=== PATIENT | female | born 1960 | race Caucasian/White ===

== ENCOUNTER 2019-03-01 09:48 | Day surgery (SDC) | payer OTHER ==
[~2019-03-01] VITALS: Ht 157.5 cm; Wt 95.8 kg
[2019-03-01 10:24] VITALS: Ht 157.5 cm; Wt 95.8 kg
[2019-03-01] MEDS ORDERED: BENAZEPRIL DAILY (10:29)
[2019-03-01] MEDS ORDERED: ASPI-903 PO (10:29)
[2019-03-01 10:41] VITALS: BP 123/73; PULSE 66; RESP 14
[2019-03-01] MEDS ORDERED: LIDOCAINE 2% (SDV) 5 ML INJ ONE (10:44)
[2019-03-01] MEDS ORDERED: PROPOFOL 60 ML ONE (10:44)
--- NOTE | 2019-03-01 11:21 | PREAC ---
Date/Time of Note Date/Time of Note DATE: 03/01/19 TIME: :19 Anesthesia Eval and Record Evaluation Time Pre-Procedure Interview DATE: 03/01/19 TIME: 11:19 Age 58 Sex female NPO: 8 hrs Preoperative diagnosis abd pain; screening Planned procedure egd/colonoscopy Past Medical History Past Medical History: Includes Cardio: HTN GI: GERD, Obesity Surgery & Anesthesia Issues No known issue Meds Anticoagulation: No Beta Jesus within 24 hr: No Reason Beta Jesus not given: Pt. not on B-Jesus Reported Medications Aspirin* (Aspirin* Chew) 81 Mg Tab.chew, 81 MG PO DAILY, TAB.CHEW 03/01/19 [Benazepril Daily] No Conflict Check 03/01/19 Meds reviewed: Yes Allergies Coded Allergies: No Known Drug Allergies (Verified Allergy, Unknown, 03/01/19) Allergies Reviewed: Yes Labs/Studies Labs Reviewed: Reviewed by anesthesiologist test: N/A Pre-procedure Exam Last vitals Vital Signs Date Temp Pulse Resp B/P (MAP) Pulse Ox O2 O2 Flow FiO2 Time Delivery Rate 03/01/19 96.6 66 14 123/73 97 Room Air 10:41 (90) Airway: Adequate mouth opening, Adequate thyromental dist Mallampati: Mallampati II Teeth: Abnormal (edentulous) Lung: Normal Heart: Normal ASA Physical Status ASA physical status: 2 Emergency: None Planned Anesthetic General/MAC: MAC Pre-operative Attestations Prior to commencing anesthesia and surgery, the patient was re-evaluated, there was verification of: *The patient's identity *The results of appropriate recent lab work and preoperative vital signs *The above evaluation not changing prior to induction *Anesthetic plan, risk benefits, alternative and complications discussed with patient/family; questions answered; patient/family understands, accepts and wishes to proceed. 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
--- NOTE | 2019-03-01 11:23 | PAC ---
Date/Time of Note Date/Time of Note DATE: 03/01/19 TIME: 11:22 Post-Anesthesia Notes Post-Anesthesia Note Last documented vital signs Vital Signs Date Temp Pulse Resp B/P (MAP) Pulse Ox O2 O2 Flow FiO2 Time Delivery Rate 03/01/19 96.6 98 66 78 14 16 123/73 97 99 Room 10:41 111 (90) 99/5 Air face 7 7 mask 6L Activity: WNL Respiratory function: WNL Cardiovascular function: WNL Mental status: Baseline Pain reasonably controlled: Yes Hydration appropriate: Yes Nausea/Vomiting absent: Yes AMERICO GARCÍA March 01, 2019 11:23
[2019-03-01] MEDS ORDERED: ONDANSETRON 4 MG INJ IV PRN (11:30)
[2019-03-01] MEDS ORDERED: FENTAnyl 50 MCG/ML VIAL IV PRN (11:30)
[2019-03-01] MEDS ORDERED: ALBUTEROL 0.083% (NEB) 2.5 MG/3 ML AMP HHN PRN (11:30)
[2019-03-01] MEDS ORDERED: ACETAMINOPHEN 500 MG TAB PO PRN (11:30)
[2019-03-01 11:45] VITALS: BP 107/69; PULSE 62; RESP 19
[2019-03-01 12:21] VITALS: BP 134/80; PULSE 67; RESP 18
== END 2019-03-01 12:53 | disposition home or self-care (01) ==
LOC: GIL 09:48
PROVIDERS: ATTEND Internal Medicine Gastroenterology
DX: Z12.11 Encounter for screening for malignant neoplasm of colon (principal); K64.8 Other hemorrhoids; K21.9 Gastro-esophageal reflux disease without esophagitis; K31.7 Polyp of stomach and duodenum; I10 Essential (primary) hypertension
CPT/HCPCS: 43239; 45378; 88305; 88312; Z7610